=== PATIENT | male | born 1985 | race Caucasian/White ===

== ENCOUNTER 2019-07-26 10:54 | Outpatient (CLI) | payer OTHER, SELFPAY ==
[2019-07-26 11:05] VITALS: BMI 26.2
--- NOTE | 2019-07-26 11:05 | ECG_ITS ---
NAME OF STUDY: TREADMILL STRESS TEST INDICATION: Abnormal EKG PROCEDURE: At the baseline, the patient's blood pressure was 130/98 with a heart rate of 88. The baseline electrocardiogram showed normal sinus rhythm with normal ST-Ts. Poor R wave progression. Left axis deviation. Some nonspecific T wave changes. The patient exercised for 9 minutes and 36 seconds on a standard [facility] protocol. Patient attained a maximum heart rate of 163 beats per minute(88 % of the maximum predicted heart rate) with a blood pressure at the peak exercise of 205/118 mm Hg. The EKG at the peak exercise revealed no significant changes. Patient did not have any chest pain or any significant cardiac arrhythmias with the exercise During the recovery phase, there were no new changes. Blood pressure at the end of the recovery phase was 160/103 mm Hg with a heart rate of 99 per minute. CONCLUSION: 1. No significant EKG changes with the treadmill exercise 2. No exercise-induced chest pain or cardiac arrhythmia 3. GERD exercise tolerance, attained a maximum of 13.5 METs 4. Hypertensive response to exercise Electronically Signed On 07-31-2019 19:14:15 CDT by Ewa Fernandez M.D. [email or web address]
[2019-07-26 11:18] VITALS: BP 180/90; PULSE 95
--- NOTE | 2019-07-26 14:56 | USCV_ITS ---
Zhou Talha Age: 34 Gender: M : 1985 Exam Date: 07/26/2019 15:01 Ordering Phys: Ewa Fenrandez MD ([email or web address]) Technologist: Giovana Auguste [place] [facility] [place]ication: ABNORMAL EKG WITH CHEST TIGHTNESS BP: 135 / 95 HR: 86 Rhythm: Sinus Technical Quality: Good MEASUREMENTS (Male / Female) Normal Values 2D ECHO LV Diastolic Diameter PLAX 3.4 cm 4.2 - 5.9 / 3.9 - 5.3 cm LV Systolic Diameter PLAX 2.3 cm LV Chamber Size 2.8 cm IVS Diastolic Thickness 0.8 cm 0.6 - 1.0 / 0.6 - 0.9 cm IVS Systolic Thickness 1.6 cm LVPW Diastolic Thickness 0.9 cm 0.6 - 1.0 / 0.6 - 0.9 cm LVPW Systolic Thickness 1.6 cm RV Chamber Size 2.7 cm LVOT Diameter 2.0 cm LV Ejection Fraction 2D Teich 61.4 % LV Ejection Fraction MOD 2C 68.9 % LV Ejection Fraction 2C AL 69.9 % LA Diameter 2.7 cm LA Width 2.7 cm LA Height 4.6 cm RA Width 3.2 cm RA Height 3.9 cm Aorta at Sinotubular Diameter 3.0 cm M-MODE LV Diastolic Diameter MM 4.4 cm 4.2 - 5.9 / 3.9 - 5.3 cm LV Systolic Diameter MM 3.0 cm LV Ejection Fraction MM Teich 59.1 % IVS Diastolic Thickness MM 1.0 cm 0.6 - 1.0 / 0.6 - 0.9 cm IVS Systolic Thickness MM 1.0 cm LVPW Diastolic Thickness MM 0.6 cm 0.6 - 1.0 / 0.6 - 0.9 cm LVPW Systolic Thickness MM 1.1 cm RV Diastolic Diameter MM 0.7 cm Aortic Annulus Diameter 3.2 cm LA Ao Ratio MM 0.8 MV E Point Septal Separation 0.3 cm DOPPLER AV Peak Velocity 136.0 cm/s LVOT Peak Velocity 80.0 cm/s AV Area Cont Eq vti 2.1 cm squared AV Area Cont Eq pk 1.9 cm squared MV Area PHT 3.5 cm squared Mitral E to A Ratio 1.1 MV E' Velocity 13.0 cm/s Mitral E to MV E' Ratio 6.6 Mitral E to LV E' Lateral Ratio 6.4 Mitral E to LV E' Septal Ratio 6.9 TR Peak Velocity 117.6 cm/s TR Peak Gradient 5.5 mmHg TR Mean Velocity 74.5 cm/s TR Mean Gradient 2.6 mmHg TR Velocity Time Integral 23.9 cm TV Peak E Velocity 86.0 cm/s Right Atrial Pressure 3.0 mmHg Pulmonary Artery Systolic Pressu 8.5 mmHg PV Peak Velocity 44.0 cm/s RV Acceleration Time 0.1 s RV Ejection Time 0.4 s RV AcT/ET 0.3 FINDINGS Left Ventricle Normal left ventricular size and systolic function, EF 71 %. No regional wall motion abnormalities. Right Ventricle The right ventricle is normal in size and function. Right Atrium The right atrium is normal in size. Left Atrium The left atrium is normal in size. Mitral Valve Structurally normal mitral valve without significant stenosis or prolapse. There is no mitral regurgitation. Aortic Valve Structurally normal aortic valve without significant sclerosis or stenosis. There is no aortic regurgitation. Tricuspid Valve Mild tricuspid valve regurgitation. Pulmonic Valve Structurally normal pulmonic valve without significant stenosis. There is no pulmonic regurgitation. Pericardium Normal pericardium without effusion. Aorta Normal ascending aorta dimension. CONCLUSIONS Normal left ventricular size and systolic function, EF 71 %. No regional wall motion abnormalities. Normal cardiac chamber sizes. Mild tricuspid valve regurgitation. Normal pulmonary artery pressure There is no pericardial effusion. There are no intracardiac masses. No previous study is available for comparison. Dr Ewa Fernandez MD FAC (Electronically Signed) Final Date: 26 Jul 2019 16:45 S
== END 2019-07-26 10:55 | disposition home or self-care (01) ==
LOC: CDL 10:57
PROVIDERS: PCP Nurse Practitioner Family; Visit Provider Internal Medicine Cardiovascular Disease
DX: R07.89 Other chest pain (principal); R06.02 Shortness of breath; R94.31 Abnormal electrocardiogram [ECG] [EKG]; I07.1 Rheumatic tricuspid insufficiency
CPT/HCPCS: 93017; 93306